=== PATIENT | male | born 1970 | race Two or more races ===

== ENCOUNTER 2019-04-17 15:24 | Outpatient (CLI) | END 2019-04-17 15:34 | disposition short-term general hospital (02) | LOC: AMBL 15:24 | PROVIDERS: ATTEND Emergency Medicine | DX: M79.89 Other specified soft tissue disorders (principal); M62.81 Muscle weakness (generalized); W19.XXXA Unspecified fall, initial encounter ==

== ENCOUNTER 2019-04-25 09:45 | Outpatient (CLI) | END 2019-04-25 10:02 | disposition short-term general hospital (02) | LOC: AMBL 09:45 | PROVIDERS: ATTEND Emergency Medicine | DX: R51 Headache (principal); I10 Essential (primary) hypertension; I63.9 Cerebral infarction, unspecified; R60.0 Localized edema; I69.351 Hemiplegia and hemiparesis following cerebral infarction affecting right dominant side; E11.65 Type 2 diabetes mellitus with hyperglycemia ==